=== PATIENT | male | born 1965 | race Caucasian/White ===

== ENCOUNTER 2019-03-30 08:39 | Inpatient (IN) | payer BC ==
[~2019-03-30] VITALS: Ht 180.3 cm; Wt 110.4 kg
[2019-03-31] VITALS (13 sets, daily range): BP systolic 93–118; BP diastolic 53–81; PULSE 70–95; TEMP 97.1–99
--- NOTE | 2019-03-31 11:00 | NUR ---
Patient up from OR alert and oriented x 3. Belkis drain to left lower quadrant with minimal drainage present. Drain to LIS. Midline incision with gauze dressing is CDI. Epidural infusing per orders, dressing is CDI. Wright to dependent drainage. Post op VSS, post op fluids infusing. Denies pain or further needs at this time.
--- NOTE | 2019-03-31 18:28 | NUR ---
Patient has done well throughout the day. Currently sitting up in recliner. Continues to deny pain at this time. Tolerating clear liquids without difficulty. Wright maintained to dependent drainage with red-tinged urine present in bag. Belkis drain maintined to LIS with minimal drainage in canister. Denies further needs at this time. 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
--- NOTE | 2019-03-31 20:24 | NUR ---
Pt up to chair. Pt helped back to bed. Gait is unsteady. Epidural site in clean, dry and intact. L side Belkis drain to LIWS. Output is bloody. Wright catheter to dependent drainage- clear, dark dawn. Abdomen soft, nontender. BS hypoactive. Respirations even and unalbored. Lungs clear. Pt denies pain. will continue to monitor.
[2019-04-01 03:09] VITALS: BP 104/59; PULSE 77; TEMP 98
--- NOTE | 2019-04-01 06:45 | NUR ---
Report given to Maddie GUTIERREZ and Regina GUTIERREZ. Pt sitting with HOB elevated. No distress noted. Pt denies pain. Belkis drain to LIWS with minimal output. Dressing clean dry and intact. No needs noted.
[2019-04-01 07:30] VITALS: BP 116/52; PULSE 75; TEMP 98.4
--- NOTE | 2019-04-01 11:12 | NUR ---
Initial visit; Patient thanked Ice Seller for looking in on him. He states he is working hard to get stronger so he can go home. Ice Seller wished him well and God's blessings.
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
--- NOTE | 2019-04-01 18:06 | NUR ---
Patient has been independent in room. Only requesting tylenol for pain since epidual removal. Wright to Leg bag, leg bag teaching given & patient able to demonstate & verbalize understanding. Belkis drain cut & bagged. He is tolerating diet. midline travsi open to air. Int.
--- NOTE | 2019-04-01 18:41 | NUR ---
patient ambulating from restroom to bed. states his pain has increased and requests something stronger. Morphine 3 mg was given IV push. Cipro was also given. patient in bed. HOB elevated. no further needs at this time.
--- NOTE | 2019-04-01 19:34 | NUR ---
Pt resting in bed. No distress noted. Pt reports incisional pain 10/31. Midlien abdominal incision stapled. open to air. Edges well approximated. L side Belkis drain with ostomy appliance- scant bloody drainage noted in bag. Pt reports increased pain with ambulation since Epidural was discontinued. Was given Morphine by dayshift. Wright catheter to dependent drainage. Urine is dawn, clear. Some bloody drainage noted around catheterinsertion site. Will contineu to monitor.
[2019-04-01 19:49] VITALS: BP 122/59; PULSE 81; TEMP 98.4
--- NOTE | 2019-04-02 03:15 | NUR ---
Pt placed on BiPAP by RT. Pt resting at this time. Will continue to monitor.
[2019-04-02 03:57] VITALS: BP 141/71; PULSE 79; TEMP 98.4
--- NOTE | 2019-04-02 05:55 | NUR ---
Pt up to bathroom. He has been up several times throughout the night, but has not been successful in having a BM. Pt has had increased pain since Epidural discontinuation. PRN PO pain medication given x2. No further needs noted.
[2019-04-02 08:09] VITALS: BP 134/65; PULSE 92; TEMP 98.8
--- NOTE | 2019-04-02 08:30 | NUR ---
Patient standing at edge of bed brushing teeth. Alert and oriented x 3. Shift assessment complete. Wright to dependent drainage with clear yellow urine present. Patient states pain 4/10 when up out of bed. requests pain medications. Denies further needs at this time.
--- NOTE | 2019-04-02 11:16 | NUR ---
Visited, provided spiritual care and prayed with the patient.
[2019-04-02 12:00] VITALS: BP 131/65; PULSE 67; TEMP 98.2
--- NOTE | 2019-04-02 15:27 | NUR ---
THU met with the patient to discuss a discharge plan. The pt lives in [place] with is , Marilyn. The pt uses a CPAP and receives his supplies from [employer] and reports independence with ADLs. The pt's PCP is Dr. Zafar and pt receives medications from [facility] with no difficulties. The pt does not have advanced directives in the EMR but was interested in a DPOA-HC form. THU provided the form. The pt plans to return home upon discharge with Marilyn providing transportation. There are no additional needs at this time.
--- NOTE | 2019-04-02 16:40 | NUR ---
Belkis drain, discontinued. Patient tolerated procedure well.
--- NOTE | 2019-04-02 18:13 | NUR ---
Discharge education provided to patient and spouse. Educated on catheter care, patient demonstrated back teaching. Educated on signs and symptoms of infection. All questions answered. Patient states Dr. Bhardwaj provided additional discharge teaching. Denies pain or further needs at this time. Patient ouut by wheelchair with surgical staff.
== END 2019-04-02 18:19 | disposition home or self-care (01) | DRG 708 ==
LOC: SURG 03-31 05:30 → INPTSU 03-31 05:30 → SURG 03-31 07:30
PROVIDERS: ADMIT Urology
PROC: 0VT00ZZ Resection of Prostate, Open Approach (ICD-10-PCS; principal; 2019-03-31 07:30)
DX: C61 Malignant neoplasm of prostate (principal); E78.5 Hyperlipidemia, unspecified; E66.9 Obesity, unspecified; G47.33 Obstructive sleep apnea (adult) (pediatric); J32.9 Chronic sinusitis, unspecified; Z68.33 Body mass index [BMI] 33.0-33.9, adult; Z99.81 Dependence on supplemental oxygen
CPT/HCPCS: A9284; J0690; J1885; J2270; J7120

== ENCOUNTER → 2020-06-12 | Outpatient (CLI) | payer BC | LOC: ZCOL.LAB 16:27 | DX: Z20.828 Contact with and (suspected) exposure to other viral communicable diseases (principal) ==

== ENCOUNTER 2021-04-11 07:10 | Day surgery (SDC) | payer BC ==
[~2021-04-11] VITALS: Ht 180.3 cm; Wt 118.1 kg
[2021-04-11 07:38] VITALS: BP 124/72; PULSE 53; TEMP 98.1
[2021-04-11 09:30] VITALS: BP 122/86; PULSE 62; TEMP 96.1
[2021-04-11 09:45] VITALS: BP 120/75; PULSE 47
[2021-04-11 10:00] VITALS: BP 137/80; PULSE 59
--- NOTE | 2021-04-11 10:45 | NUR ---
0930 Pt returns from endo procedure via cart and RN assist to GI [facility] 2. Pt ambulates from cart to recliner with RN assist. Monitors on and alarms set. Call light within reach. Report received from BRENDA Mcclure. Pt alert and oriented. Pt requests muffin x 2, crackers x 3, applesauce, and juice. Pt denies any pain or nausea. 0950 Pt taking food and drink well. No complications noted. 1015 Discharge instructions given to pt. All questions answered to his satisfaction. Handed to pt are a thank you card and discharge information. Wait for Dr. Perez to visit with pt. 1045 Pt transferred out of the hospital via wheelchair and this RN assist, to private vehicle driven by pt's .
== END 2021-04-11 10:45 | disposition home or self-care (01) ==
LOC: SDCO 07:10
DX: Z12.11 Encounter for screening for malignant neoplasm of colon (principal); D12.5 Benign neoplasm of sigmoid colon; D12.8 Benign neoplasm of rectum; K57.30 Diverticulosis of large intestine without perforation or abscess without bleeding; E29.1 Testicular hypofunction; E66.9 Obesity, unspecified; Z20.822 Contact with and (suspected) exposure to COVID-19; Z79.899 Other long term (current) drug therapy; Z85.46 Personal history of malignant neoplasm of prostate
CPT/HCPCS: J2704; J7120